=== PATIENT | male | born 1950 | race Caucasian/White ===

== ENCOUNTER → 2020-02-08 06:50 | Outpatient (CLI) | payer MEDICARE, SELFPAY ==
[2020-01-20 13:51] VITALS: BMI 29.9
--- NOTE | 2020-02-08 06:51 | ECHOCS_ITS ---
Reason For Study: New onset AFib Procedure This was a 2D Doppler, Color Flow transthoracic echocardiogram. The study was technically difficult. Contrast injection was performed. Exam performed in department. Left Ventricle Normal LV size. Left ventricular systolic function is normal. The estimated ejection fraction is 60 %. Unable to assess diastolic dysfunction due to arrhythmia. No regional wall motion abnormalities noted. Right Ventricle Normal RV size. Normal systolic function. Atria The left atrium is moderately enlarged. Normal right atrium. Mitral Valve Normal mitral valve. Tricuspid Valve Normal tricuspid valve. Mild to moderate (1-2+) tricuspid valve insufficiency. Pulmonary artery systolic pressure is 40 mmHg. Aortic Valve Normal aortic valve. Trisinus/trileaflet aortic valve. Pulmonic Valve Normal pulmonic valve. Great Vessels Normal aortic root. The pulmonary artery is normal size. Normal inferior vena cava. Pericardium/Pleural No pericardial effusion. Medication 22 gauge I.V. with prn adaptor inserted into left arm. Diluted definity 3ml given slow IV push to enhance endocardial definition. MMode/2D Measurements & Calculations LVIDd: 4.2 cm IVSd: 0.88 cm Ao root diam: 3.4 cm LVIDs: 2.9 cm LVPWd: 1.1 cm LA dimension: 4.6 cm RVDd: 3.3 cm FS: 31.2 % LAV(MOD-bp): 88.4 ml LA A4 area: 27.4 cm2 RA A4 area: 20.6 cm2 LAV(MOD-bp) Indexed: 41.6 ml/m2 LAV(MOD-sp2): 80.0 ml LAV(MOD-sp4): 98.4 ml Time Measurements MV dec time: 0.15 sec Doppler Measurements & Calculations MV E max poli: 108.2 cm/sec MV V2 max: 129.0 cm/sec MV P1/2t max poli: 129.0 cm/sec MV A max poli: 30.6 cm/sec MV max P.7 mmHg MV P1/2t: 56.8 msec MV E/A: 3.5 MV V2 mean: 66.0 cm/sec MV dec slope: 665.6 cm/sec2 MV mean P.1 mmHg MV V2 VTI: 22.9 cm MVA(P1/2t): 3.9 cm2 Ao V2 max: 100.1 cm/sec LV V1 max: 80.8 cm/sec PA V2 max: 94.4 cm/sec Ao max P.0 mmHg LV V1 max P.6 mmHg TR max poli: 301.4 cm/sec TR max P.3 mmHg Interpretation Summary Normal LV size. Left ventricular systolic function is normal. The estimated ejection fraction is 60 %. The left atrium is moderately enlarged. Unable to assess diastolic dysfunction due to arrhythmia. Contrast injection was performed. Ordering Physician: Raimundo Rivera Referring Physician: Raimundo Rivera Performed By: Chato Al RCS
--- NOTE | 2020-02-08 10:12 | STRESSREP ---
Stress Test Report Pharmacologic myocardial perfusion stress test. 71-year-old man with a previous stent in the LAD and hypertension and hyperlipidemia. Stress protocol: Resting EKG demonstrates atrial fibrillation with a rate of 79 bpm normal intervals are noted. 0.4 mg of regadenoson was infused per usual protocol followed by.. Intravenous saline flush injection continuous EKG monitoring was performed. The maximum heart rate was 103 bpm which was 68% of maximum predicted heart rate the maximum workload was 1 metabolic equivalent. At rest there were no ST or T wave changes noted to suggest abnormal flow reserve at peak infusion nonspecific ST-T wave changes were noted with no meet the criteria for ischemia. No clinical angina was noted. Myocardial perfusion protocol. 11.8 mCi of technetium 99m sestamibi was injected at rest. 0.4 mg of regadenoson was infused per usual protocol. At peak infusion 36.0 mCi of technetium 99m sestamibi was injected stress images were obtained stress and rest images were reconstructed and compared in the short axis vertical long and horizontal long axis. Gated images were also obtained per Perfusion SPECT analysis: Review of the images demonstrate normal uptake of tracer noted in all areas of the myocardium the resting images similarly demonstrate normal uptake of tracer noted in all areas of the myocardium. No reversibility is noted to suggest ischemia no previous infarct is noted. Gated SPECT analysis: The gated ejection fraction is 77%. Conclusion: Normal pharmacologic myocardial perfusion stress test. Preserved ejection fraction. Atrial fibrillation noted.
== END ==
PROVIDERS: Referring Provider Internal Medicine Cardiovascular Disease; Visit Provider Internal Medicine Cardiovascular Disease
DX: Z01.810 Encounter for preprocedural cardiovascular examination (principal); I48.91 Unspecified atrial fibrillation; I48.92 Unspecified atrial flutter; I25.10 Atherosclerotic heart disease of native coronary artery without angina pectoris; Z95.5 Presence of coronary angioplasty implant and graft
CPT/HCPCS: 78452; 93017; 93306; A9500; Q9957; A4216; C8929; J2785

== ENCOUNTER 2020-03-29 11:24 | Day surgery (SDC) | payer MEDICARE, SELFPAY ==
[2020-03-08 11:11] VITALS: BMI 29.8
[2020-03-23 10:26] LABS: Absolute Lymphocyte Count 0.74 X10^3/uL (0.83-4.51); Absolute Neutrophil Count 4.4 X10^3/uL (2.0-7.7); Basophil# 0.02 X10^3/uL; Basophil% 0.3 % (0-1); Eosinophils% 1.7 % (0-5); Hematocrit 41.9 % (40-54); Hemoglobin 14.2 g/dL (13.0-16.5); Lymphocyte # 0.74 X10^3/ul (4.0); Lymphocyte % 12.5 % (19-41); Mean Corp Hgb Conc 33.9 g/dL (32-36); Mean Corpuscular Hgb 35.5 pg (27.0-32.0); Mean Corpuscular Volume 104.8 fL (80-94); Mean Platelet Vol. 10.2 fl (6.2-12.0); Monocyte# 0.65 X10^3/uL; NRBC Flagged by Analyzer 0 % (0-5); Neutrophil # 4.39 X10^3/uL (2.7-7.7); Neutrophil % 74.2 % (47-70); Platelet Count 158 K/mm3 (150-450); RBC Distribution Width CV 11.9 % (11.6-14.6); RBC Distribution Width SD 46.5 fl (35.1-43.9); White Blood Count 5.9 K/mm3 (4.4-11.0)
[2020-03-23 11:01] LABS: Anion Gap 7 (5-15); BUN 6 mg/dL (7-18); BUN/Creat Ratio 8.8 RATIO (10-20); Chloride 100 mmol/L (98-107); Creatinine, Serum 0.68 mg/dL (0.70-1.30); EST Glomerular Filtration Rate 121 mL/min (>60); Est Glom Filt Rate - Afr Amer 147 mL/min (>60); Glucose 95 mg/dL (74-106); Magnesium 2.2 mg/dL (1.6-2.6); Potassium 4.2 mmol/L (3.5-5.1); Sodium Level 135 mmol/L (136-145); Thyroid Stim Hormone (TSH) 1.65 uIU/mL (0.358-3.74)
[2020-03-25 09:33] VITALS: BMI 29.8
--- NOTE | 2020-03-29 12:44 | CARDIOVERS ---
Cardioversion Cardioversion: 69-year-old male with a history of atrial fibrillation. The patient was brought to the cardiac catheterization lab in the postabsorptive nonsedated state. Patient was seen by Dr. Oliveira of the critical care division. After informed consent was obtained anterior posterior pads were applied. 200 J of synchronized DC cardioversion energy were applied after the patient was administered 80 mg of intravenous propofol. The patient was noted to have converted into a regular rhythm which appeared to be an accelerated junctional rhythm. Patient is noted to be on a beta-josue as well as amiodarone. Conclusion: Successful DC cardioversion from atrial fibrillation to a junctional rhythm. We will continue to monitor. Would see in the office in a week.
--- NOTE | 2020-03-29 12:50 | PRO.PCM_ITS ---
Procedure Report Date of Procedure: 03/29/20 CONSCIOUS SEDATION REPORT DATE OF SERVICE: March 29, 2020 BRIEF HISTORY OF PRESENT ILLNESS: The patient is a 69-year-old male who presented to [facility] for an elective outpatient cardioversion due to underlying atrial fibrillation. The patient has never previously undergone a cardioversion. He is anticoagulated on Eliquis. His last surface echocardiogram revealed an ejection fraction of approximately 60%. He denies any previous known anesthetic complications. PHYSICAL EXAMINATION: VITAL SIGNS: Reviewed and were acceptable. GENERAL: The patient is a male, in no apparent distress, speaking in full sentences. HEENT: Normocephalic, atraumatic. Mucous membranes are moist and pink. Good mouth opening noted. Trachea is midline. Good neck mobility. CHEST: S1, S2 irregularly irregular. No murmurs, rubs or gallops were noted. LUNGS: Clear to auscultation bilaterally without appreciable wheezes, rales or rhonchi. ABDOMEN: Soft, nontender, nondistended. Positive bowel sounds. EXTREMITIES: There is no clubbing, cyanosis or edema. ASA Class: II DESCRIPTION OF PROCEDURE: After confirmation of informed consent, the patient's anesthesia plan was reviewed in detail. Propofol was chosen. Risks and benefits were reviewed and the patient agreed to proceed. At 1224, the patient was given his first bolus of propofol. In total, the patient required 80 mg of propofol to achieve an appropriate level of sedation, after which time, he was given a 200 joule synchronized cardioversion by Dr. Rivera at the bedside. This was successful in achieving normal sinus rhythm. The patient was monitored until 1234, at which time he reached his baseline mental status and function. The patient tolerated the procedure well. COMPLICATIONS: None ESTIMATED BLOOD LOSS: None RECOMMENDATIONS: Okay to recover in usual fashion. [id number]: Other Procedure See Report - [id number]
--- NOTE | 2020-04-08 06:00 | HP_ITS ---
HPI HPI History of Present Illness Details: 69-year-old man with a previous cardiac history significant for coronary artery disease status post LAD stenting in 2011 with a 3 x 18 mm X science stent, hypertension, hyperlipidemia who had presented for cataract surgery. He was noted to be in atrial fibrillation with a controlled ventricular response rate. The surgery was canceled and he was sent here for further evaluation and management. He underwent cataract surgery without cardiac issues. He denies chest, arm, jaw, or neck discomfort. His exercise tolerance is stable. He denies symptoms of palpitations, lightheadedness, dizziness, near syncope, or syncopal episodes. He denies edema or claudication issues. He denies orthopnea, PND, blood in urine, blood in stool, myalgia, or unexplainable fatigue. He notes SOB with activity that improves with rest. This is somewhat improved since last office visit. He states states intermittent snoring. He states taking naps throughout the day. He states feeling tired a lot. Intake Vital Signs 03/08/20 Height 5 ft 10 in 03/08/20 Weight: 208 lb 03/08/20 BMI 29.8 03/08/20 BP 170/100 H 03/08/20 Blood Pressure Location Lt brachial 03/08/20 Position Sitting 03/08/20 Respiration 18 03/08/20 Pulse 76 03/08/20 Pulse Source Monitor 03/08/20 Pulse Oximetry (%) 98 Intake Visit Reasons: 3 wk fu Clinical Instructor Required: No Accompanied by: None Is patient in pain?: No Allergies No Known Allergies Allergy (Verified 03/08/20 11:07) Medications acetaminophen 500 mg capsule 500 mg PO Q6H PRN 01/20/20 [History Confirmed 03/08/20] cholecalciferol (vitamin D3) 25 mcg (1,000 unit) capsule 25 mcg PO DAILY 01/20/20 [History Confirmed 03/08/20] methocarbamol 750 mg tablet 750 mg PO BID tab 01/20/20 [History Confirmed 03/08/20] metoprolol tartrate 50 mg tablet 50 mg PO BID 01/20/20 [History Confirmed 03/08/20] multivitamin 1 tab PO DAILY 01/20/20 [History Confirmed 03/08/20] omeprazole 20 mg capsule,delayed release 20 mg PO DAILY 01/20/20 [History Confirmed 03/08/20] simvastatin 80 mg tablet 80 mg PO QHS 01/20/20 [History Confirmed 03/08/20] terazosin 5 mg capsule 5 mg PO DAILY 01/20/20 [History Confirmed 03/08/20] apixaban 5 mg tablet 5 mg PO BID #180 tab 02/08/20 [Rx Confirmed 03/08/20] amiodarone 200 mg tablet 200 mg PO DAILY #30 tab 02/19/20 [Rx Confirmed 03/08/20] aspirin 81 mg tablet,delayed release 81 mg PO DAILY 02/19/20 [History Confirmed 03/08/20] [facility] Medical History (Updated 02/19/20 @ 14:27 by Tony Mcfarlane SAW OPERATOR, SAW OPERATOR-C) New onset atrial fibrillation (Acute 01/12/20) Atherosclerosis of coronary artery of [place] heart without angina pectoris (Chronic) Essential (primary) hypertension (Chronic) Hyperlipidemia (Chronic) BPH (benign prostatic hyperplasia) (Chronic) Cataracts, both eyes (Chronic) Surgical History History of coronary artery stent placement (Resolved 06/05/11) History of prostate surgery (Resolved) Family History Mother CVA (cerebral vascular accident) Social History (Updated 03/08/20 @ 12:23 by Tony Mcfarlane SAW OPERATOR, SAW OPERATOR-C) Smoking Status: Former smoker ROS Const Const: Positive for fatigue and daytime sleepiness; negative for weakness, body ache, fever(s) or chills ENT ENT: Negative for dizziness Cardio Chest Pain: No Palpitations: No Edema: None Muscle aches with walking: None Resp Respiratory: Positive for SOB with activity and snoring; negative for SOB at rest, SOB orthopnea\SOB lying down, Cough or paroxysmal nocturnal dyspnea GI GI: Negative nausea, vomiting blood/hematemesis, bright, red blood in stools or black,tarry stools : Negative for hematuria or frequent nighttime urination/ nocturia Musc Musc: Negative for muscle aches/ myalgia Skin Skin: Negative non-healing lesions or rash Neuro Neuro: Negative for dizziness, lightheadedness, near syncope, syncope, orthostatic symptoms or weakness Endo Endo: Positive for fatigue Allergy Allergy/Immunology: Negative for rash Cardiology Exam Const Appearance: cooperative, healthy appearing, comfortable and no acute distress Nutritional Appearance: well nourished and overweight Orientation: alert, awake and oriented x3 Head Head: normal to inspection Ears: hearing grossly normal bilaterally Nose: external nose normal Face and Sinus: face symmetric Mouth: oral mucosae normal Eyes General: appearance normal, both eyes and all related structures Eyelids: eyelids normal EOM: EOM intact bilaterally Neck Neck: normal visual inspection and no JVD Carotids: normal carotid upstroke Chest Chest inspection: normal inspection of the chest, symmetric chest movement and normal respiratory effort; negative cough Auscultation: Bilateral: Clear to Auscultation Cardio Palpation: normal PMI Rate: regular rate Rhythm: irregular rhythm Heart sounds: S1 normal and S2 normal; negative rub, gallop or murmur GI GI: normal to inspection Neuro General: alert, awake, oriented x3 and CN's II-XI intact bilaterally Skin Skin: no rashes or lesions noted Extremities Pulses: Normal: Right Posterior Tibial Pulse, Left Posterior Tibial Pulse, Right Radial Pulse, Left Radial Pulse Lower Extremity Edema: None: Bilateral Psych Psychological: normal affect Assessment & Plan 1. New onset atrial fibrillation I48.91 Plan Patient's EKG today in office continues to show atrial fibrillation a rate of 75 bpm, QTC 380, and a QRS of 92. It was discussed with him in regards to cardioversion. At this time, he is agreeable to such approach. He denies any interruption in medical therapy. His case will be reviewed with Dr. Rivera in regards to proceeding with cardioversion. He will require a BMP prior to procedure. He does exhibit multiple symptoms concerning for obstructive sleep apnea. It was discussed with him in regards to polysomnogram. He does not wish to proceed with such testing today. Orders Orders: 12 Lead EKG performed by [facility] Today 2. Atherosclerosis of [place] coronary artery of [place] heart without angina pectoris I25.10 Plan He denies any chest, arm, jaw, or neck discomfort to suggest angina. He will continue current medical therapy. Will continue risk factor and lifestyle modification. 3. History of coronary artery stent placement Z95.5 PCI-SONNY-Mid LAD w/ 3.0 x 18 mm Xience V Stent 06/05/2011 Plan He will continue current medical therapy. 4. Essential hypertension I10 Plan His blood pressure is slightly elevated today in office. He was asked to monitor this on a regular basis. If his blood pressure remains elevated, we will consider additional medical therapy such as KENISHA inhibitor or ARB. 5. Hyperlipidemia, unspecified hyperlipidemia type E78.5 Plan He will continue current high-dose statin medication. Plan Detail Additional Comments Thank you for allowing us to participate in the patients plan of care, if you have any questions please do not hesitate to call. This note was generated using a voice recognition system and there may be incorrect words, spelling or punctuation that were not noted when reviewing the office note prior to saving. Follow Up 2-3 Months (SAW OPERATOR/PA) Coding Level of Care Code Off vis,est,level 3 Diagnoses New onset atrial fibrillation I48.91 Atherosclerosis of [place] coronary artery of [place] heart without angina pectoris I25.10 ??Coronary Disease-Associated Artery/Lesion type: [place] artery History of coronary artery stent placement Z95.5 Essential hypertension I10 Hyperlipidemia, unspecified hyperlipidemia type E78.5 ??Hyperlipidemia type: unspecified Coding Level of Care Code Off vis,est,level 3 Diagnoses New onset atrial fibrillation I48.91 Atherosclerosis of [place] coronary artery of [place] heart without angina pectoris I25.10 ??Coronary Disease-Associated Artery/Lesion type: [place] artery History of coronary artery stent placement Z95.5 Essential hypertension I10 Hyperlipidemia, unspecified hyperlipidemia type E78.5 ??Hyperlipidemia type: unspecified Supplemental Info Supplemental Information Echocardiogram from 02/08/2020: Interpretation Summary Normal LV size. Left ventricular systolic function is normal. The estimated ejection fraction is 60 %. The left atrium is moderately enlarged. Unable to assess diastolic dysfunction due to arrhythmia. Contrast injection was performed. Stress test from 02/08/2020: Conclusion: Normal pharmacologic myocardial perfusion stress test. Preserved ejection fraction. Atrial fibrillation noted. Diagnostics Electrocardiogram 03/08/20 Echocardiogram 02/08/20 Stress Test Nuclear Medicine 02/08/20 Stress Test 02/08/20
== END 2020-03-29 13:30 | disposition home or self-care (01) ==
LOC: CLSP 11:25
PROVIDERS: Referring Provider Internal Medicine Cardiovascular Disease; Visit Provider Internal Medicine Cardiovascular Disease
DX: I48.91 Unspecified atrial fibrillation (principal); I10 Essential (primary) hypertension; I25.10 Atherosclerotic heart disease of native coronary artery without angina pectoris; E78.5 Hyperlipidemia, unspecified; N40.0 Benign prostatic hyperplasia without lower urinary tract symptoms; H26.9 Unspecified cataract; Z95.5 Presence of coronary angioplasty implant and graft; Z79.01 Long term (current) use of anticoagulants; Z79.82 Long term (current) use of aspirin; Z79.899 Other long term (current) drug therapy; Z87.891 Personal history of nicotine dependence
CPT/HCPCS: 36415; 80048; 83735; 84443; 85025; 92960; 93005; J7040

== ENCOUNTER → 2020-09-29 07:50 | Outpatient (CLI) | payer MEDICARE, SELFPAY ==
[2020-06-16 09:21] VITALS: BMI 30.2
--- NOTE | 2020-09-29 07:52 | CT_ITS ---
STUDY: CT RIGHT SHOULDER REASON FOR EXAM: Right glenohumeral osteoarthritis, surgical planning. TECHNIQUE: The patient was scanned in a multi detector CT scanner. High resolution transaxial imaging was performed without the administration of intravenous contrast material. Sagittal and coronal images were reconstructed. Individualized dose optimization techniques were used for this CT. COMPARISON: None. FINDINGS: There is advanced glenohumeral arthrosis with marginal osteophytes of the humeral head and joint space narrowing (coronal reconstructions 50-56) without demonstrated posterior erosion of the glenoid. There is a glenohumeral joint effusion with fluid extending into the bicipital tendon sheath. Normal humeral head, neck and tuberosities. Normal coracoid process. Normal visualized lateral clavicle. There is no substantial acromioclavicular arthrosis. There is a Type II morphology (curved), with a neutral orientation. Normal visualized muscles and soft tissue structures. CT/Extremity Upper without Contra IMPRESSION: Glenohumeral osteoarthritis with joint effusion. Electronically Signed: Eduardo Gonsales MD at 9:33 EDT Tel , Service support ,
== END ==
PROVIDERS: Referring Provider Specialist; Visit Provider Specialist
DX: M19.211 Secondary osteoarthritis, right shoulder (principal); G89.29 Other chronic pain
CPT/HCPCS: 73200

== ENCOUNTER → 2021-02-02 09:06 | Outpatient (CLI) | payer MEDICARE, SELFPAY ==
[2021-02-02 10:15] LABS: Absolute Lymphocyte Count 0.62 X10^3/uL (0.83-4.51); Absolute Neutrophil Count 3.6 X10^3/uL (2.0-7.7); Basophil# 0.02 X10^3/uL; Basophil% 0.4 % (0-1); Eosinophil# 0.07 X10^3/uL; Eosinophils% 1.4 % (0-5); Hematocrit 44.7 % (40-54); Hemoglobin 14.9 g/dL (13.0-16.5); Lymphocyte # 0.62 X10^3/ul (0.83-4.51); Lymphocyte % 12.7 % (19-41); Mean Corp Hgb Conc 33.3 g/dL (32-36); Mean Corpuscular Hgb 35.8 pg (27.0-32.0); Mean Corpuscular Volume 107.5 fL (80-94); Mean Platelet Vol. 9.6 fl (6.2-12.0); Monocyte# 0.56 X10^3/uL; Monocyte% 11.5 % (0-10); NRBC Flagged by Analyzer 0 % (0-5); Neutrophil # 3.59 X10^3/uL (2.7-7.7); Neutrophil % 73.6 % (47-70); Platelet Count 179 K/mm3 (150-450); RBC Distribution Width CV 11.8 % (11.6-14.6); RBC Distribution Width SD 46.5 fl (35.1-43.9); Red Blood Count 4.16 M/mm3 (4.6-6.2); White Blood Count 4.9 K/mm3 (4.4-11.0)
[2021-02-02 10:46] LABS: Albumin, Serum 3.6 g/dL (3.2-5.0); Anion Gap 5 (5-15); BUN 8 mg/dL (7-18); BUN/Creat Ratio 13.3 RATIO (10-20); Chloride 101 mmol/L (98-107); EST Glomerular Filtration Rate 141 mL/min (>60); Est Glom Filt Rate - Afr Amer 170 mL/min (>60); Glucose 99 mg/dL (74-106); Potassium 4.5 mmol/L (3.5-5.1); Sodium Level 134 mmol/L (136-145)
== END ==
PROVIDERS: Referring Provider Physician Assistant Surgical; Visit Provider Physician Assistant Surgical
DX: Z01.818 Encounter for other preprocedural examination (principal)
CPT/HCPCS: 36415; 80048; 82040; 85025